=== PATIENT | female | born 1965 | race Caucasian/White ===

== ENCOUNTER 2023-07-23 11:22 | Emergency (ER) | payer SELFPAY ==
[2023-07-23 11:23] VITALS: BP 168/103; PULSE 74; RESP 16; TEMP 35.3; O2SAT 100; BMI 22.0
--- NOTE | 2023-07-23 11:44 | ED.VIS.BACK ---
HPI History of Present Illness Chief Complaint: Back Narrative Narrative: 58-year-old female presenting with her daughter for evaluation of back pain. This is an acute on chronic issue. Patient [place] from [place] with her daughter. Patient is a poor informant because she has dementia. Daughter states that she gives her most of her care. She is around at 1 was 24 hours a day. Patient states that since her brothers do not help her with her care she decided to move here and brought her mother with her. The patient's daughter states that she has been on Parker and Percocet before for pain for short-term treatment. She has not been on pain management. She is not sure when she last had imaging. Denies any new trauma. They transplant from [place] state about 6 months ago and no not established for insurance or for primary care. Patient's daughter states she is not having fevers, chills, cough, chest pain, shortness of breath. She has been eating and drinking normally. She is otherwise been physically healthy. Back pain. [facility] Medical History (Updated 07/23/23 @ 11:51 by Bryan Hector) Bulging disc Dementia Herniated disc Hyperlipemia Hypertension Type 2 diabetes mellitus Allergy/AdvReac Type Severity Reaction Status Date / Time codeine Allergy Intermediate Rash Verified 07/23/23 11:24 morphine Allergy Intermediate RASH Verified 07/23/23 11:24 Penicillins Allergy Intermediate Rash Verified 07/23/23 11:24 Social History Smoking Status: Never smoker [facility] ED Constitutional Constitutional ED: Denies chills, fever(s) or sweats Eyes Eyes: Denies blurry vision or change in vision ENT ENT ED: Denies ear pain or sore throat Cardiovascular Cardiovascular: Denies chest pain, palpitations or racing heartbeat Respiratory/Chest Respiratory/Chest: Denies cough, dyspnea or sputum Gastrointestinal Gastrointestinal: Denies abdominal pain, constipation, diarrhea, nausea or vomiting Genitourinary Genitourinary ED: Denies dysuria, hematuria or urinary frequency Musculoskeletal Musculoskeletal: Reports back pain; Denies arthralgias, myalgias or neck pain Integumentary Denies abscess, Abrasions or rash Neurologic Neurologic: Denies headache(s), paresthesias or weakness Psychiatric Psychiatric: Denies anxiety, depression, suicidal ideation or suicidal thoughts Endocrine Endocrinology: Denies polydipsia or polyuria EXAM Physical Exam Const Vital Signs: 07/23/23 11:23 Temperature 95.6 F L Temperature Source Temporal Pulse Rate 74 Respiratory Rate 16 Blood Pressure 168/103 H Blood Pressure Mean 124 Pulse Ox 100 Oxygen Delivery Method Room Air Positive well nourished General Appearance ED: Negative for pallor HEENT Reports moist mucous membranes Eyes PERRL and EOMs intact bilaterally Resp normal respiratory effort and clear to auscultation bilaterally Cardio regular rate and regular rhythm Back/Spine Back/Spine Narrative: Tenderness palpation left thoracic paraspinal musculature. No midline spinal deformity or step-off. No rashes, ecchymosis. Equal symmetric breath sounds chest wall rise. Patient able to rise from supine to sitting unassisted without using her hands for support without any difficulty. Extremity normal to inspection Neuro Sensorium / Orientation: alert Motor Exam: strength 5/5 throughout Psych mental status grossly normal Skin General Skin Exam: Negative for jaundice or pallor MDM MDM MDM Narrative Medical decision making narrative: Patient presenting with back pain which is acute on chronic. Daughter states that she has an issue with this intermittently and has been treated with Parker and Percocet in the past. They state that they have been trying lidocaine patches and Tylenol/ibuprofen at home. On examination patient has some left thoracic paraspinal muscular tenderness. She is able to sit up from the lying position to supine with unassisted with use of her arms and hands. Lungs are clear to auscultation bilaterally. Discussed with the patient's daughter that she would need to establish care with primary care and try to obtain insurance in case this becomes a problem in the future. I treated the patient with Parker here as she has tolerated this in the past. Daughter states she can watch her as well. Thoracic spine x-rays 3 views were obtained. X-ray of the thoracic spine shows age-indeterminate compression deformities of the lower thoracic spine at least at T12 and L1. Radiology interprets this and agrees. Patient was given a prescription for Parker and she already has Lidoderm. Again family urged to make follow-up for her with her primary doctor and to obtain health insurance. Impression: 1. Thoracic compression deformities 2. Lumbar compression deformities Radiography Diagnostic Testing: Clinical Impression(s) from Imaging Studies Thoracic Spine X-Ray 07/23/23 11:48 IMPRESSION: Compression fractures of the lower thoracic and upper lumbar spine. Electronically Signed: Jair Soliz MD at 12:18 EDT , Discharge Plan Triage Chief Complaint: Back ED Provider: Eduar Hart Dx/Rx/DC Orders Primary Care Provider: Care Physician,No Primary Referrals: NOT,DEFINED [Non-Staff] -
[2023-07-23] MEDS: HYDROcodone Bitartrate/Apap 5/325 Tablet PO (11:47)
--- NOTE | 2023-07-23 11:48 | RAD_ITS ---
STUDY: X-RAY - THORACIC SPINE REASON FOR EXAM: Female, 58 years old. Pain TECHNIQUE: 3 view(s) of the thoracic spine were obtained. COMPARISON: None. FINDINGS: Normal kyphosis of the thoracic spine. There is no substantial scoliosis. There are compression fractures of the lower thoracic and upper lumbar spine, of uncertain age. Normal disc space heights. The soft tissue structures are unremarkable. RAD/Thoracic Spine 3 Views IMPRESSION: Compression fractures of the lower thoracic and upper lumbar spine. Electronically Signed: Jair Soliz MD at 12:18 EDT ,
[2023-07-23 13:33] VITALS: BP 144/86; PULSE 69; RESP 16; TEMP 36.8; O2SAT 97
== END 2023-07-23 13:34 | disposition home or self-care (01) ==
PROVIDERS: Emergency Provider Student in an Organized Health Care Education/Training Program; Visit Provider Student in an Organized Health Care Education/Training Program
DX: M54.9 Dorsalgia, unspecified (principal); F03.90 Unspecified dementia, unspecified severity, without behavioral disturbance, psychotic disturbance, mood disturbance, and anxiety; E11.9 Type 2 diabetes mellitus without complications; G89.29 Other chronic pain; E78.5 Hyperlipidemia, unspecified; I10 Essential (primary) hypertension
CPT/HCPCS: 72072; 99282

== ENCOUNTER 2023-10-25 16:44 | Emergency (ER) | payer SELFPAY ==
[2023-10-25 16:47] VITALS: BP 162/130; PULSE 75; RESP 18; TEMP 36.4; O2SAT 98; BMI 21.4
--- NOTE | 2023-10-25 17:53 | ED.VIS.BACK ---
HPI History of Present Illness Chief Complaint: Back [facility] Medical History Herniated disc Bulging disc Dementia Hypertension Hyperlipemia Type 2 diabetes mellitus Home Medications ?Medication ?Instructions ?Recorded ?Last Taken ?Type hydrocodone-acetaminophen 5-325mg 1 tab PO Q6H pain 3 days #12 07/23/23 10/25/23 Rx 5mg-325mg TABLETS amlodipine 5 mg tablet 5 mg PO DAILY 10/25/23 10/25/23 History Allergy/AdvReac Type Severity Reaction Status Date / Time codeine Allergy Intermediate Rash Verified 10/25/23 16:46 morphine Allergy Intermediate RASH Verified 10/25/23 16:46 Penicillins Allergy Intermediate Rash Verified 10/25/23 16:46 Social History Smoking Status: Never smoker EXAM Physical Exam Const Vital Signs: 10/25/23 16:46 10/25/23 16:47 10/25/23 18:46 Temperature 97.6 F L Temperature Source Temporal Pulse Rate 75 78 Respiratory Rate 18 16 Respiratory Effort Normal Respiratory Pattern Normal Blood Pressure 162/130 H 210/73 H Blood Pressure Mean 140 118 Pulse Ox 98 98 Oxygen Delivery Method Room Air Room Air 10/25/23 20:00 Temperature Temperature Source Pulse Rate 65 Respiratory Rate 15 Respiratory Effort Respiratory Pattern Blood Pressure 184/69 H Blood Pressure Mean 107 Pulse Ox 98 Oxygen Delivery Method Room Air MDM MDM MDM Narrative Medical decision making narrative: HISTORY OF PRESENT ILLNESS: 58-year-old female presents with concern for elevated blood pressure, nausea and back pain. She states she has had acute on chronic back pain for the greater part last week. She also notes elevated blood pressure as well as nausea. Denies any abdominal pain, flank pain. Notes dysuria and frequency. Denies hematuria. Denies any falls. Denies chest pain or shortness of breath but does note some lightheadedness. Patient denies any saddle anesthesia, urinary retention, bowel or bladder incontinence, lower extremity weakness, fever or IV drug use, no recent spinal manipulation or surgery, no recent urinary catheterization. In terms of triage note of suicide ideation patient denies any suicidal ideation to me. Denies any homicide ideation, auditory visual hallucinations. She is accompanied by her primary caregiver her daughter who states because of her dementia she sometimes states things that are not true and she thinks is consistent with her baseline. REVIEW OF SYSTEMS: Pertinent positives: Nausea, back pain Pertinent negatives: Headache, chest pain, shortness of breath, abdominal pain PHYSICAL EXAM: Nursing triage notes reviewed, Vital signs reviewed Constitutional: please see mdm HENT: MMM Eyes: Pupils equal round and reactive to light, Extraocular muscles intact Neck: No stridor, no JVD, full neck ROM Lungs: Clear to auscultation, No wheezing or rales. No increased work of breathing, no conversational dyspnea, no accessory muscle use, no nasal flaring. No respiratory distress noted Heart: Regular rate and rhythm, No murmurs, No rubs and No gallops, 2+ distal pulses (radial, femoral, posterior tibial) in all extremities Abdomen: Soft, there is no tenderness, rigidity, rebound or guarding, no obvious peritoneal signs, no palpable pulsatile abdominal masses, no auscultated abdominal bruit : No CVAT Extremities: No edema Neuro: No focal neurological deficits, cranial nerves II through XII intact, 5/5 strength in all extremities. Intact sensation to light touch in all extremities, 2+ reflexes bilateral patella tendons. Normal gait. No ataxia. Intact sensation L1-S1 dermatomal distributions. Intact 5/5 strength in hip flexion (T12-L3). Knee extension (L2-L4). Ankle dorsiflexion (L4-L5). Ankle plantar flexion (S1). Great toe extension (L5). 2+ patellar and Achilles DTRs. Skin: No rash or lesions noted MEDICAL DECISION MAKING: Chief Complaint: Back pain, nausea External records reviewed: Imaging reviewed: X-ray thoracic spine from July 2023 shows compression fracture lower thoracic and upper lumbar spine Factors affecting care: Lumbar thoracic compression fractures Social determinants of health: none History obtained from others: Patient's daughter Consults: none [facility] Narrative: Patient was initially hypertensive but blood pressure 162/130 otherwise afebrile and nontoxic-appearing. Exam without obvious focal neurologic deficits. I considered the following differential diagnosis: Bony abnormality of the spine, nephrolithiasis, pyelonephritis, AAA, space-occupying lesion of the spine (epidural abscess, c cauda equina, conus medullary syndrome), I also considered ACS, arrhythmia, anemia, electrolyte disturbance, dehydration given report of lightheadedness I obtained a broad lab and imaging workup to further elucidate etiology patient complaints. There is no physical exam evidence of space-occupying to the spine. Patient no red flag symptoms such as bowel or bladder incontinence or urinary retention. She had no focal neurologic deficits in the lower extremities. While I considered epidural abscess, cauda equina or back conus medullaris syndrome this is of low likelihood given the patient's history physical exam. I treat the patient with IV narcotic pain medicine, Toradol and a 1000 cc normal saline bolus. Patient continued to have elevated blood pressure With a blood pressure 210/73 so she received a dose of oral amlodipine (blood pressure improved after oral amlodipine) ALL IMAGES (IF OBTAINED) HAVE BEEN PERSONALLY REVIEWED AND INTERPRETED BY MYSELF. EKG with normal sinus rhythm, normal axis, no intervals, no STEMI High-sensitivity troponin is negative, no evidence of myocardial ischemia I have personally reviewed the patient's chest x-ray. Chest x-ray is unremarkable for pulmonary edema, pneumothorax, pneumonia or focal cardiopulmonary abnormality. CBC without leukocytosis, severe anemia, no thrombocytopenia. CMP without evidence of acute kidney injury, significant electrolyte abnormality, anion gap, no evidence hepatobiliary pathology. Urine with evidence of inflammation given dysuria, back pain I suspect this may be related to UTI. Give prophylactic antibiotics and send urine for culture. CT scan of the thoracic spine shows compression fractures of T11, T12 and L1 CT scan lumbar spine is unrevealing CT scan of the abdomen pelvis shows no evidence of acute intra-abdominal pathology The synthesis the patient's history, his exam, labs images are just likely a multifactorial presentation including compression fractures as well as UTI. Will cover with antibiotics. Will send urine for culture. The patient and/or family, caregivers express understanding. The patient and/or family, caregivers agrees with the plan. Shared decision making: I will have a discussion with the patient and or visitors regarding risk/benefits of further testing or admission. They will be made aware of of the risk/benefits inherent in this decision they will be given the opportunity to voice understanding. Total critical care time today provided was at least 0 [] minutes. This excludes separately billable procedures. Critical care time (if documented) is secondary to the patient having high probability of clinically significant/life threatening deterioration in the patient's condition which required my urgent intervention. Impression: 1. Back pain 2. UTI 3. Poorly controlled hypertension Dispo: Discharge home This note was generated with Dragon dictation software. It may contain incorrect words, spelling, and punctuation that were not noted in review of the chart prior to signing. Lab Data Labs: Laboratory Results - last 24 hr 10/25/23 10/25/23 18:25 18:55 WBC 7.5 RBC 5.16 Hgb 15.0 Hct 46.8 MCV 90.7 MCH 29.1 MCHC 32.1 RDW Std Deviation 44.5 H RDW Coeff of Frank 13.2 Plt Count 230 MPV 11.8 Sodium 139 Potassium 3.8 Chloride 103 Carbon Dioxide 29.0 Anion Gap 7 BUN 23 H Creatinine 1.04 H Estim Creat Clear Calc 54.35 Est GFR (MDRD) Af Amer 70 Est GFR (MDRD) Non-Af 58 L BUN/Creatinine Ratio 22.1 H Glucose 170 H Calcium 9.9 Total Bilirubin 0.90 AST 14 L ALT 17 Alkaline Phosphatase 109 Troponin I High Sens 6 Total Protein 8.1 Albumin 4.1 Globulin 4.0 Albumin/Globulin Ratio 1.0 Urine Color Yellow Urine Clarity Sl. Cloudy Urine pH 6.0 Ur Specific [place] 1.010 Urine Protein Negative Urine Glucose (UA) Normal Urine Ketones Negative Urine Occult Blood Negative Urine Nitrite Negative Urine Bilirubin Negative Urine Urobilinogen Normal Ur Leukocyte Esterase 100 H Urine RBC 0 SEEN Urine WBC 0-5 SEEN Ur Squamous Epith Cells 0-5 SEEN Urine Bacteria 0 SEEN Urine Mucus 0 SEEN Radiography Diagnostic Testing: Clinical Impression(s) from Imaging Studies Abdomen/Pelvis CT 10/25/23 18:16 IMPRESSION: 1. No definite acute abnormality seen. 2. Fecal retention. Electronically Signed: Roni Martinez MD at 20:22 EDT , Lumbar Spine CT 10/25/23 18:16 IMPRESSION: 1. Transitional anatomy with partial sacralization of L5. 2. No evidence of fractures or acutely acquired canal stenosis throughout the lumbar spine. 3. Chronic appearing narrowing of the canal and neural foramina at multiple levels as detailed. 4. Deformity of the superior endplate of T12 of uncertain acuity however consistent with superior endplate compression. No fracture planes noted. No retropulsion. 5. Bilateral nonobstructing renal calcifications. Electronically Signed: Fer Avila MD at 20:34 EDT , Thoracic Spine CT 10/25/23 18:16 IMPRESSION: Mild compression fractures of T11, T12, L1, also present on previous radiographs. No other significant findings or changes. Electronically Signed: Roni Martinez MD at 21:54 EDT , Chest X-Ray 10/25/23 19:24 IMPRESSION: Normal x-ray examination of the chest. Electronically Signed: Roni Martinez MD at 20:07 EDT , Discharge Plan Triage Chief Complaint: Back Other Complaint: Hypertension ED Provider: Dick Alvares Dx/Rx/DC Orders Prescriptions: No Action hydrocodone-acetaminophen 5-325 mg tablet 1 tab PO Q6H 3 Days Qty: 12 0RF amlodipine 5 mg tablet 5 mg PO DAILY Primary Care Provider: Care Physician,No Primary Referrals: Care Physician,No Primary [Primary Care Provider] - Print Language: Chinese
--- NOTE | 2023-10-25 18:16 | CT_ITS ---
INDICATION: back pain hx of compression fractures EXAMINATION: CT LUMBAR SPINE - CT Spine Lumbar W/O Contrast Injection TECHNIQUE: Helically acquired images were obtained of the lumbar spine. 2D reformats were reviewed. A radiation dose optimization technique was used for this scan. IV Contrast dosage and agent: None. Radiation Dose (provided by facility) CTDIvol (15.36 ) mGy, DLP ( 465.63) mGy-cm COMPARISON: None. FINDINGS: VERTEBRAE: 1. There is transitional anatomy with rudimentary 12th ribs, and partial sacralization of L5. 2. There is maintenance vertebral body height and alignment throughout the lumbar spine. There is a subtle superior compression deformity of T12 of indeterminate age. No distinct fracture planes noted. No retropulsion or canal stenosis. 3. Diffuse facet hypertrophy throughout the lumbar spine. No acutely acquired canal stenosis. 4. Bilateral renal calcifications without hydronephrosis. DISCS and SPINAL CANAL: Multilevel disc and facet changes. T12-L1: No evidence of disc herniation canal or foraminal narrowing. L1-2: No evidence of disc herniation canal or foraminal narrowing L2-3: Facet hypertrophic changes ligament flavum hypertrophy and broad-based disc bulge with mild asymmetry greater on the LEFT than RIGHT. Mild compression of lateral recesses. Central canal is maintained. L3-4: Facet hypertrophy and ligamentum flavum hypertrophy. Broad-based disc bulge without central canal stenosis, mild narrowing of lateral recesses greater on LEFT than RIGHT. L4-5: Disc space narrowing. Broad-based disc bulge/protrusion osteophyte complex with effacement of the anterior epidural space and compromise of lateral recesses and neural foramina greater on the RIGHT than LEFT. Facet hypertrophy is present. L5-S1: Partial sacralization of L5, no evidence of canal or foraminal stenosis. VISUALIZED ABDOMEN: Diffuse aortic calcifications throughout the aorta without aneurysmal dilatation There is no retroperitoneal adenopathy. CT/Spine Lumbar without Contrast IMPRESSION: 1. Transitional anatomy with partial sacralization of L5. 2. No evidence of fractures or acutely acquired canal stenosis throughout the lumbar spine. 3. Chronic appearing narrowing of the canal and neural foramina at multiple levels as detailed. 4. Deformity of the superior endplate of T12 of uncertain acuity however consistent with superior endplate compression. No fracture planes noted. No retropulsion. 5. Bilateral nonobstructing renal calcifications. Electronically Signed: Fer Avila MD at 20:34 EDT ,
--- NOTE | 2023-10-25 18:16 | EKG12_ITS ---
Test Reason : BACK PAIN Blood Pressure : / mmHG Vent. Rate : 067 BPM Atrial Rate : 067 BPM P-R Int : 132 ms QRS Dur : 084 ms QT Int : 390 ms P-R-T Axes : 067 026 066 degrees QTc Int : 412 ms Normal sinus rhythm Normal ECG Confirmed by CHAPARRO GUERIN, EMILIANO ([id number]), news copy editor GRACIE GUDINO ([id number]) on 10/26/2023 1:02:35 PM Referred By: Confirmed By:EMILIANO MAYFIELD MD
--- NOTE | 2023-10-25 18:16 | CT_ITS ---
EXAM: CT ABDOMEN AND PELVIS WITH INTRAVENOUS CONTRAST CLINICAL INDICATION: lower abdominal pain TECHNIQUE: Helically acquired images were obtained of the abdomen and pelvis with intravenous contrast. This CT exam was performed using one or more of the following dose reduction techniques: automated exposure control, adjustment of the mA and/or kV according to patient size, and/or use of iterative reconstruction technique. CONTRAST: IV 100mL [id number]-300 RADIATION DOSE: CTDIvol = 12.16 mGy, DLP = 561.75 mGy-cm COMPARISON: No relevant prior studies available. FINDINGS: LOWER THORAX: Unremarkable. Lung bases are clear. No cardiomegaly. No significant pericardial effusion. ABDOMEN: LIVER: There is hepatomegaly. Otherwise unremarkable liver. GALLBLADDER AND BILE DUCTS: Distended gallbladder. No stones are seen. No intra- or extrahepatic biliary ductal dilation. PANCREAS: Unremarkable. No focal cystic or solid mass. SPLEEN: Multiple calcified granulomas are seen of the spleen. ADRENALS: Unremarkable. No nodules. KIDNEYS AND URETERS: No acute abnormality. Normal renal size and position. No hydronephrosis. Bilateral renal artery calcifications are seen. STOMACH AND BOWEL: Evaluation of the GI tract is limited by absence of oral contrast. Cannot exclude stomach wall thickening. No dilated loops of bowel or evidence for obstruction. Cannot exclude segmental thickening of the patel of the small or large bowel. Cannot exclude enteritis or colitis. Marked diffuse fecal retention. Appendix within normal limits. PELVIS: APPENDIX: No evidence of acute appendicitis. BLADDER: Unremarkable. REPRODUCTIVE: Unremarkable as visualized. No mass. ABDOMEN and PELVIS: INTRAPERITONEAL SPACE: Unremarkable. No ascites or other fluid collection. No free air. BONES/JOINTS: Degenerative changes throughout the spine. Partial compression fractures of T11, T12, and L1 of indeterminate age. No suspicious lytic or blastic abnormality. SOFT TISSUES: Unremarkable. No discrete abdominal or pelvic wall hernia. VASCULATURE: Heavily calcified aorta with no aneurysm. LYMPH NODES: Unremarkable. No enlarged lymph nodes. CT/Abdomen/Pelvis W IV Cont ONLY IMPRESSION: 1. No definite acute abnormality seen. 2. Fecal retention. Electronically Signed: Roni Martinez MD at 20:22 EDT ,
--- NOTE | 2023-10-25 18:16 | CT_ITS ---
STUDY: CT THORACIC SPINE WITHOUT CONTRAST REASON FOR EXAM: Female, 58 years old. back pain RADIATION DOSAGE (If Supplied By Facility): CTDIvol = ( 18.42 ) mGy, DLP = ( 631.85 ) mGycm TECHNIQUE: The patient was scanned in a multi detector CT scanner. High resolution imaging was performed. Images were obtained from to . Sagittal and coronal images were reconstructed. Individualized dose optimization techniques were used for this CT. COMPARISON: Radiographs 07/23/2023. FINDINGS: Normal visualized cervical spine. Normal kyphosis of the thoracic spine. Normal alignment. There is no substantial scoliosis. Mild compression fractures of T11, T12, and L1 similar to the previous radiographs. Otherwise normal thoracic vertebrae and endplates. Normal disc spaces heights. The soft tissue structures are unremarkable. CT/Spine Thoracic without Contras IMPRESSION: Mild compression fractures of T11, T12, L1, also present on previous radiographs. No other significant findings or changes. Electronically Signed: Roni Martinez MD at 21:54 EDT ,
[2023-10-25] MEDS: oxyCODONE 5 MG Tablet PO (18:27)
[2023-10-25] MEDS: Ketorolac 15 MG/ML Vial IV (18:27)
[2023-10-25 18:37] LABS: Hematocrit 46.8 % (37-47); Mean Corp Hgb Conc 32.1 g/dL (32-36); Mean Corpuscular Hgb 29.1 pg (27.0-32.0); Mean Corpuscular Volume 90.7 fL (81-99); Mean Platelet Vol. 11.8 fl (6.2-12.0); Platelet Count 230 K/mm3 (150-450); RBC Distribution Width CV 13.2 % (11.6-14.6); RBC Distribution Width SD 44.5 fl (35.1-43.9); Red Blood Count 5.16 M/mm3 (4.2-5.4); White Blood Count 7.5 K/mm3 (4.4-11.0)
[2023-10-25 18:46] VITALS: BP 210/73; PULSE 78; RESP 16; O2SAT 98
[2023-10-25 18:59] LABS: AST(SGOT) 14 U/L (15-37); Alanine Aminotransfer ALT/SGPT 17 U/L (13-56); Albumin, Serum 4.1 g/dL (3.2-5.0); Alkaline Phosphatase 109 U/L (45-117); Anion Gap 7 (5-15); BUN 23 mg/dL (7-18); BUN/Creat Ratio 22.1 RATIO (10-20); Calcium,Total 9.9 mg/dL (8.5-10.1); Chloride 103 mmol/L (98-107); Creatinine, Serum 1.04 mg/dL (0.55-1.02); EST Glomerular Filtration Rate 58 mL/min (>60); Est Glom Filt Rate - Afr Amer 70 mL/min (>60); Estimated Creatinine Clearance 54.35 ml/min; Glucose 170 mg/dL (74-106); Potassium 3.8 mmol/L (3.5-5.1); Protein, Total 8.1 g/dL (6.4-8.2); Sodium Level 139 mmol/L (136-145); Troponin-I HS 6 pg/mL (3.0-54.0)
[2023-10-25 19:01] LABS: Bacteria 0 SEEN /hpf (None Seen); Mucous, Urine 0 SEEN /hpf (<or=2+); Red Blood Cells-Urine 0 SEEN /hpf (0-5)
[2023-10-25 19:04] LABS: Color, Urine Yellow (Yellow); Glucose, Dipstick Normal (Normal); Ketone-Dipstick Negative (Negative); Leukocyte Esterase-Dipstick 100 /ul (Negative); Nitrite-Dipstick Negative (Negative); Occult Blood-Urine Negative /ul (Negative); Protein-Dipstick Negative (Negative); Urine Bilirubin Dipstick Negative (Negative); Urine Clarity Sl. Cloudy (Clear); Urine Urobilinogen Normal (Normal)
[2023-10-25 19:11] LABS: Squamous Epithelial Cells - UA 0-5 SEEN /hpf (5-10); White Blood Cells 0-5 SEEN /hpf (0-5)
--- NOTE | 2023-10-25 19:24 | RAD_ITS ---
STUDY: X-RAY CHEST REASON FOR EXAM: Female, 58 years old. dizziness TECHNIQUE: Single AP portable view of the chest. There is COMPARISON: None. FINDINGS: The lungs are clear and expanded. There is no demonstrated pleural abnormality. Normal size heart. Normal mediastinum and sybil. Normal visualized pulmonary arteries. Normal visualized aortic arch and descending thoracic aorta. Normal visualized thoracic spine. Normal visualized ribs, clavicles, and shoulders. There is no demonstrated abnormality of the visualized soft tissue structures of the upper abdomen. RAD/Chest 1 View (Portable) IMPRESSION: Normal x-ray examination of the chest. Electronically Signed: Roni Martinez MD at 20:07 EDT ,
[2023-10-25 20:00] VITALS: BP 184/69; PULSE 65; RESP 15; O2SAT 98
[2023-10-25] MEDS: amLODIPine 10 MG Tablet PO (20:15)
[2023-10-25 22:00] VITALS: BP 200/72; PULSE 67; RESP 16; O2SAT 98
[2023-10-25] MEDS: Smz/Tmp Ds Tablet 1 TABLET PO (22:27)
[2023-10-25 22:30] VITALS: BP 200/74; PULSE 65; RESP 16; TEMP 36.1; O2SAT 98
== END 2023-10-25 22:31 | disposition home or self-care (01) ==
PROVIDERS: Emergency Provider Emergency Medicine; Visit Provider Emergency Medicine
DX: N39.0 Urinary tract infection, site not specified (principal); E11.9 Type 2 diabetes mellitus without complications; M48.54XS Collapsed vertebra, not elsewhere classified, thoracic region, sequela of fracture; M48.55XS Collapsed vertebra, not elsewhere classified, thoracolumbar region, sequela of fracture; I10 Essential (primary) hypertension; E78.5 Hyperlipidemia, unspecified
CPT/HCPCS: 71045; 72128; 72131; 74177; 80053; 81001; 84484; 85027; 87086; 87088; 93005; 96374; 99285; Q9967; A4216